=== PATIENT | female | born 1945 | race Caucasian/White ===

== ENCOUNTER → 2017-04-24 | Outpatient (CLI) | payer OTHER | LOC: FIMAGING 13:41 | PROVIDERS: ATTEND Internal Medicine | DX: R10.11 Right upper quadrant pain (principal); K76.89 Other specified diseases of liver ==

== ENCOUNTER 2017-09-05 13:15 | Emergency (ER) | payer OTHER ==
[2017-09-05] MEDS ORDERED: HYOSCYAMINE SULFATE 0.125 MG TAB PO ONE (14:15)
[2017-09-05] MEDS ORDERED: NS 500 ML IV ONE (14:15)
[2017-09-05] MEDS ORDERED: ONDANSETRON 4 MG/2 ML VIAL IVP ONE (14:15)
[2017-09-05] MEDS ORDERED: MAG HYDROX/AL HYDROX/SIMETH 30 ML UDCUP PO ONE (14:15)
[2017-09-05] MEDS ORDERED: FAMOTIDINE 20 MG/NACL 50 ML IV ONE (14:15)
[2017-09-05] MEDS ORDERED: LIDOCAINE 2% VISCOUS 15 ML UDCUP PO ONE (14:15)
--- NOTE | 2017-09-05 14:19 | EDPHY ---
H & P Time Seen by Provider: 09/05/17 13:55 HPI/ROS: CHIEF COMPLAINT: Abdominal pain HISTORY OF PRESENT ILLNESS: Patient is a 71-year-old female with no significant past medical history presents to the emergency department with 6 months of epigastric and right upper quadrant pain. The patient states"the pain is under my rib."She states it is waxing waning. It is not worse with food. In fact, she fasted for day and she had no change in her symptoms. She initially thought it could be secondary to anxiety or grief. She lost her partner last December. The patient was followed by her primary care physician. 3 -4 months ago she had a negative ultrasound blood work. She comes in today because she has has increased right upper quadrant epigastric abdominal pain. It does not radiate. She has had nausea with no vomiting. No change in her bowel habits. No fevers or chills. REVIEW OF SYSTEMS: My complete review of systems is negative except as mentioned in the HPI. Past Medical/Surgical History: Includes anxiety Past surgical history: Negative Social history: Patient does not smoke. She drinks alcohol occasionally. Smoking Status: Never smoked Physical Exam: Vitals noted GENERAL: Well-appearing, in no acute distress, alert. HEENT: Eyes normal to inspection, normal pharynx, no signs of dehydration. NECK: No thyromegaly, no lymphadenopathy, supple. RESPIRATORY: Clear to auscultation bilaterally, no rales, rhonchi or wheezing. CVS: Regular rate and rhythm, no rubs, murmurs, or gallops. ABDOMEN: Soft, right upper quadrant tenderness palpation with no rebound or guarding, nondistended, no organomegaly. BACK: Normal to inspection, no CVA tenderness. SKIN: Normal color, no rash, warm, dry. No pallor. EXTREMITIES: No pedal edema, no calf tenderness, no Homans sign or cords, no joint swelling. NEURO/PSYCH: Alert and oriented x3, normal mood and affect, normal motor sensory exam. Constitutional: Initial Vital Signs Temperature (C) 36.5 C 09/05/17 13:31 Heart Rate 70 09/05/17 13:31 Respiratory Rate 16 09/05/17 13:31 Blood Pressure 114/75 09/05/17 13:31 O2 Sat (%) 95 09/05/17 13:31 O2 Delivery Mode Room Air Allergies/Adverse Reactions: Tetanus Vaccines and Toxoid [Tetanus] Adverse Reaction (Verified 03/08/11 14:13) Home Medications: Medication Instructions Recorded Albuterol [Proventil] 17 gm IH PRN PRN 03/08/11 Diazepam [Valium] 2 mg PO PRN PRN 03/08/11 Famotidine [Pepcid 20 MG (*)] 20 mg PO BID #10 tab 09/05/17 Hydrocodone/APAP 5/325 [[place] 1 - 2 tab PO Q4 #13 tab 09/05/17 5/325 (RX)] Medical Decision Making - Diagnostics Imaging Results: Imaging Impressions Abdomen Ultrasound 09/05/17 14:16 Impression: Multiple hepatic cysts. No evidence for cholelithiasis or cholecystitis. Results called and discussed with Dr. Brandie Velazco on September 05, 2017 at 1515 hours. Chest X-Ray 09/05/17 14:16 Impression: No evidence of acute cardiopulmonary abnormality. ED Course/Re-evaluation: In the emergency department I discussed possible etiologies with the patient. I answered all her questions. IV was placed. She was given Pepcid 20 mg IV. She was given a GI cocktail. She is given Zofran 4 mg IV for nausea. Laboratory studies, ultrasound chest x-ray were ordered. I reviewed the patient's laboratory studies. CBC, chemistry and LFTs are normal. Ultrasound: No acute disease noted. I rechecked the patient. She states she felt much better after receiving the Pepcid and GI cocktail. She will be given a prescription for Pepcid. She also be given a prescription for Vicodin if she has breakthrough pain. She is given warnings prior to leaving. She will return with worsening symptoms. She is given follow-up with primary physician as well as GI. Differential Diagnosis: My differential includes but is not limited to cholecystitis, cholangitis, pancreatitis, hiatal hernia, GERD, reflux - Data Points Laboratory Results: Laboratory Results 09/05/17 14:02 09/05/17 14:02 09/05/17 09/05/17 14:02 14:02 WBC 5.41 10^3/uL 10^3/uL (3.80-9.50) RBC 4.62 10^6/uL 10^6/uL (4.18-5.33) Hgb 15.0 g/dL g/dL (12.6-16.3) Hct 43.9 % % (38.0-47.0) MCV 95.0 fL fL (81.5-99.8) MCH 32.5 pg pg (27.9-34.1) MCHC 34.2 g/dL g/dL (32.4-36.7) RDW 12.4 % % (11.5-15.2) Plt Count 209 10^3/uL 10^3/uL (150-400) MPV 10.4 fL fL (8.7-11.7) Neut % (Auto) 56.6 % % (39.3-74.2) Lymph % (Auto) 32.2 % % (15.0-45.0) Pierce % (Auto) 9.4 % % (4.5-13.0) Eos % (Auto) 0.9 % % (0.6-7.6) Baso % (Auto) 0.7 % % (0.3-1.7) Nucleat RBC Rel Count 0.0 % % (0.0-0.2) Absolute Neuts (auto) 3.06 10^3/uL 10^3/uL (1.70-6.50) Absolute Lymphs (auto) 1.74 10^3/uL 10^3/uL (1.00-3.00) Absolute Monos (auto) 0.51 10^3/uL 10^3/uL (0.30-0.80) Absolute Eos (auto) 0.05 10^3/uL 10^3/uL (0.03-0.40) Absolute Basos (auto) 0.04 10^3/uL 10^3/uL (0.02-0.10) Absolute Nucleated RBC 0.00 10^3/uL 10^3/uL (0-0.01) Immature Gran % 0.2 % % (0.0-1.1) Immature Gran # 0.01 10^3/uL 10^3/uL (0.00-0.10) Sodium 142 mEq/L mEq/L (135-145) Potassium 4.4 mEq/L mEq/L (3.5-5.2) Chloride 107 mEq/L mEq/L (97-110) Carbon Dioxide 25 mEq/l mEq/l (22-31) Anion Gap 10 mEq/L mEq/L (8-16) BUN 17 mg/dL mg/dL (7-23) Creatinine 0.7 mg/dL mg/dL (0.6-1.0) Estimated GFR > 60 Glucose 94 mg/dL mg/dL (70-100) Calcium 9.4 mg/dL mg/dL (8.5-10.4) Total Bilirubin 0.5 mg/dL mg/dL (0.1-1.4) Conjugated Bilirubin 0.4 mg/dL mg/dL (0.0-0.5) Unconjugated Bilirubin 0.1 mg/dL mg/dL (0.0-1.1) AST 20 IU/L IU/L (14-46) ALT 31 IU/L IU/L (9-52) Alkaline Phosphatase 51 IU/L IU/L (38-126) Total Protein 6.9 g/dL g/dL (6.3-8.2) Albumin 3.9 g/dL g/dL (3.5-5.0) Lipase 125 IU/L IU/L (23-300) Medications Given: Discontinued Medications Al Hydroxide/Mg Hydroxide (Maalox Susp) 30 ml PO ONCE ONE Stop: 09/05/17 14:16 Last Admin: 09/05/17 14:35 Dose: 30 ml Hyoscyamine Sulfate (Levsin, Hyomax-Sl) 0.25 mg PO ONCE ONE Stop: 09/05/17 14:16 Last Admin: 09/05/17 14:37 Dose: 0.25 mg Sodium Chloride (Ns) 500 mls @ 0 mls/hr IV EDNOW ONE; Wide Open PRN Reason: Protocol Stop: 09/05/17 14:16 Last Admin: 09/05/17 14:37 Dose: 500 mls Famotidine/Sodium Chloride (Pepcid 20 Mg (Premix)) 50 mls @ 200 mls/hr IV EDNOW ONE Stop: 09/05/17 14:29 Last Admin: 09/05/17 14:36 Dose: 50 mls Lidocaine (Lidocaine 2% Viscous) 15 ml PO ONCE ONE Stop: 09/05/17 14:16 Last Admin: 09/05/17 14:35 Dose: 15 ml Ondansetron HCl (Zofran) 4 mg IVP EDNOW ONE Stop: 09/05/17 14:16 Last Admin: 09/05/17 14:35 Dose: Not Given Departure - Departure Disposition: Home, Routine, Self-Care Clinical Impression: Abdominal pain Qualifiers: Abdominal location: right upper quadrant Qualified Code(s): R10.11 - Right upper quadrant pain Condition: Good Instructions: Acute Abdominal Pain (ED) Additional Instructions: Return with increasing pain, vomiting, fever or any other concerns. Your laboratory studies were unremarkable. Your ultrasound was normal. Referrals: Jagdish Browning MD [Primary Care Provider] - 5-7 days, call for appt. Citlaly Ortega MD [Medical Doctor] - 3-4 days, if not improved Prescriptions: Famotidine [Pepcid 20 MG (*)] 20 mg PO BID #10 tab Hydrocodone/APAP 5/325 [[place] 5/325 (RX)] 1 - 2 tab PO Q4 #13 tab
[2017-09-05 14:20] LABS: PLATELET COUNT 209 10^3/uL (150-400)
[2017-09-05 16:47] VITALS: BP 146/81
== END 2017-09-05 16:46 | disposition home or self-care (01) ==
DX: R10.11 Right upper quadrant pain (principal); E86.9 Volume depletion, unspecified
CPT/HCPCS: 96374; J2405